=== PATIENT | female | born 1950 | race Caucasian/White ===

== ENCOUNTER 2023-09-05 09:45 | Emergency (ER) | payer OTHER ==
[~2023-09-05] VITALS: Ht 165.1 cm; Wt 77.1 kg
[2023-09-05 09:53] VITALS: BP 152/77
[2023-09-05] MEDS ORDERED: Percocet 5-3251 EACH PO ×2 (11:08→11:46)
[2023-09-05] MEDS ORDERED: Acetaminophen 325 MG TABLET PO ONE (11:25)
[2023-09-05] MEDS ORDERED: Ketorolac Tromethamine 30mg Vial IM ONE (11:25)
== END 2023-09-05 12:07 | disposition home or self-care (01) ==
LOC: ER 09:45
DX: S32.591A Other specified fracture of right pubis, initial encounter for closed fracture (principal); S63.91XA Sprain of unspecified part of right wrist and hand, initial encounter; W18.30XA Fall on same level, unspecified, initial encounter
CPT/HCPCS: 72170; 73130; 96372; 99284-25; A9270; J1885